=== PATIENT | female | born 1995 | race Caucasian/White ===

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

== ENCOUNTER 2017-01-20 23:20 | Inpatient (IN) ==
[2017-01-20] MEDS ORDERED: NORMAL SALINE 10 ML SYRINGE FLUSH IVP PRN (23:45)
[2017-01-21] MEDS ORDERED: MORPHINE SULFATE 10 MG/1 ML IM ONE (06:58)
[2017-01-21] MEDS ORDERED: NORMAL SALINE 10 ML SYRINGE FLUSH IVP PRN (09:15)
[2017-01-21] MEDS ORDERED: METHYLERGONOVINE MALEATE 0.2 MG/1 ML VIAL IM PRN (09:15)
[2017-01-21] MEDS ORDERED: Famotidine Inj 20 MG in Normal Saline Flush 10 ML IVP PRN ×4 (09:15)
[2017-01-21] MEDS ORDERED: fentaNYL Inj 100 MCG/2 ML VIAL IV PRN (09:15)
[2017-01-21] MEDS ORDERED: Nalbuphine Inj 20 MG/ML Ampule IVP PRN (09:15)
[2017-01-21] MEDS ORDERED: Naloxone Inj 0.01 MG in Normal Saline Flush 1 ML IVP PRN (09:15)
[2017-01-21] MEDS ORDERED: OXYTOCIN 10 UNIT/1 ML IM PRN (09:15)
[2017-01-21] MEDS ORDERED: LIDOCAINE HCL 2 % 10 ML JELLY URO-JECT TOPICAL PRN (09:15)
[2017-01-21] MEDS ORDERED: CITRIC ACID/SODIUM CITRATE 30 ML CUP PO PRN (09:15)
[2017-01-21] MEDS ORDERED: Lactated Ringers-OB Dept 1,000 ML PRIMARY IV SCH (09:15)
[2017-01-21] MEDS ORDERED: Lidocaine 1% 10 MG/ML - 20 ML VIAL SUBCUT PRN (09:15)
[2017-01-21] MEDS ORDERED: diphenhydrAMINE 50 MG/1 ML VIAL IVP PRN (09:15)
[2017-01-21] MEDS ORDERED: Phenylephrine Inj 50 MCG in Normal Saline Flush 0.5 ML IVP PRN (09:15)
[2017-01-21] MEDS ORDERED: CALCIUM CARBONATE 500 MG (TUMS) CHEWABLE TABLET PO PRN (09:15)
[2017-01-21] MEDS ORDERED: TERBUTALINE SULFATE 1 MG/1 ML SDV SUBCUT PRN (09:15)
[2017-01-21] MEDS ORDERED: Metoclopramide Inj 10 MG/2 ML VIAL IV PRN (09:15)
[2017-01-21] MEDS ORDERED: NALOXONE 0.4 MG/1 ML VIAL IVP PRN (09:15)
[2017-01-21] MEDS ORDERED: CefOXitin Inj 2 GM in Sodium Chloride 0.9% 100 ML IV PRN (09:15)
[2017-01-21] MEDS ORDERED: Oxytocin 20 Units + LR 20 UNIT/1,000 ML BAG IV SCH (09:15)
[2017-01-21] MEDS ORDERED: MISOPROSTOL 200 MCG TABLET RECTAL PRN (09:15)
[2017-01-21] MEDS ORDERED: Carboprost Inj 250 MCG/ML AMP IM PRN (09:15)
[2017-01-21] MEDS ORDERED: ePHEDrine Inj 5 MG in Normal Saline Flush 1 ML IVP PRN (09:15)
[2017-01-21] MEDS ORDERED: LIDOCAINE W/ SODIUM BICARB 0.5 ML SYR SUBD PRN (09:15)
[2017-01-21] MEDS ORDERED: BUTORPHANOL TARTRATE 2 MG/1 ML VIAL IVP PRN (09:15)
[2017-01-21] MEDS ORDERED: ONDANSETRON 4 MG/2 ML VIAL IVP PRN (09:15)
[2017-01-21 12:54] VITALS: O2SAT 100
[2017-01-21 14:31] VITALS: BP 131/67; RESP 17; TEMP 98.4
--- NOTE | 2017-01-24 13:54 | OB.PROGRES ---
Date and Time of Service: 01/21/17 @ 1500 Interval History: Pt came to labor and delivery last noc with painful uterine contractions. She was observed overnoc. This morning, she was seen by myself as Dr. Polanco was out of town. She was having painful contractions about every 2-3 minutes. Her cervix was 2-3/80/-2. She did ambulate and get in the whirlpool. Later, she was given some IVF and a dose of fentanyl, which greatly improved her pain. She was discharged home with labor precautions. Objective - Cervical Exam Cervical Exam: 2-3/80/-2 at last check per myself at 0900. Her cervix was unchanged with the nurse's check prior to discharge. Crocker: irregular, mild contractions. Heart Rate: category 1, moderate variability. Heart Rate Interpretation Category: Category I - Vital Signs Last Taken Vital Signs: Vital Signs - Last Taken Temperature 98.4 F 01/21/17 14:29 Pulse Rate 99 01/21/17 14:29 Respiratory Rate 17 01/21/17 14:29 Blood Pressure 131/67 01/21/17 14:29 Pulse Ox 100 01/21/17 14:29 Assessment and Plan - Patient Problems (1) Prolonged latent phase of labor Status: Acute Code(s): O62.0 - Primary inadequate contractions - Assessment / Plan Additional Assessment/Plan Details: -d/c home with strict labor precautions. -regular diet -f/u as scheduled with Dr. Polanco this week. -return sooner with increased pain with contractions, any vag bleeding, gushes of fluid or other concerns.
== END 2017-01-21 15:30 | disposition home or self-care (01) | DRG 782 ==
LOC: OBOP 23:20 → OBIP 01-21 09:16
PROVIDERS: ADMIT Family Medicine; ATTEND Family Medicine

== ENCOUNTER 2017-01-22 06:30 | Inpatient (IN) ==
[2017-01-22] MEDS ORDERED: NORMAL SALINE 10 ML SYRINGE FLUSH IVP PRN ×2 (06:42→23:38)
[2017-01-22] MEDS ORDERED: Phenylephrine Inj 50 MCG in Normal Saline Flush 0.5 ML IVP PRN ×2 (06:42→14:03)
[2017-01-22] MEDS ORDERED: CALCIUM CARBONATE 500 MG (TUMS) CHEWABLE TABLET PO PRN ×2 (06:42→23:38)
[2017-01-22] MEDS ORDERED: ONDANSETRON 4 MG/2 ML VIAL IVP PRN ×2 (06:42→23:38)
[2017-01-22] MEDS ORDERED: LIDOCAINE HCL 2 % 10 ML JELLY URO-JECT TOPICAL PRN ×2 (06:42→23:38)
[2017-01-22] MEDS ORDERED: CITRIC ACID/SODIUM CITRATE 30 ML CUP PO PRN (06:42)
[2017-01-22] MEDS ORDERED: Lidocaine 1% 10 MG/ML - 20 ML VIAL SUBCUT PRN (06:42)
[2017-01-22] MEDS ORDERED: TERBUTALINE SULFATE 1 MG/1 ML SDV SUBCUT PRN (06:42)
[2017-01-22] MEDS ORDERED: ePHEDrine Inj 5 MG in Normal Saline Flush 1 ML IVP PRN ×2 (06:42→14:03)
[2017-01-22] MEDS ORDERED: MISOPROSTOL 200 MCG TABLET RECTAL PRN (06:42)
[2017-01-22] MEDS ORDERED: diphenhydrAMINE 50 MG/1 ML VIAL IVP PRN ×3 (06:42→23:38)
[2017-01-22] MEDS ORDERED: BUTORPHANOL TARTRATE 2 MG/1 ML VIAL IVP PRN ×2 (06:42→14:03)
[2017-01-22] MEDS ORDERED: METHYLERGONOVINE MALEATE 0.2 MG/1 ML VIAL IM PRN (06:42)
[2017-01-22] MEDS ORDERED: Famotidine Inj 20 MG in Normal Saline Flush 10 ML IVP PRN ×4 (06:42)
[2017-01-22] MEDS ORDERED: Carboprost Inj 250 MCG/ML AMP IM PRN (06:42)
[2017-01-22] MEDS ORDERED: Metoclopramide Inj 10 MG/2 ML VIAL IV PRN (06:42)
[2017-01-22] MEDS ORDERED: LIDOCAINE W/ SODIUM BICARB 0.5 ML SYR SUBD PRN (06:42)
[2017-01-22] MEDS ORDERED: Naloxone Inj 0.01 MG in Normal Saline Flush 1 ML IVP PRN ×2 (06:42→14:03)
[2017-01-22] MEDS ORDERED: OXYTOCIN 10 UNIT/1 ML IM PRN (06:42)
[2017-01-22] MEDS ORDERED: CefOXitin Inj 2 GM in Sodium Chloride 0.9% 100 ML IV PRN (06:42)
[2017-01-22] MEDS ORDERED: Nalbuphine Inj 20 MG/ML Ampule IVP PRN ×3 (06:42→23:38)
[2017-01-22] MEDS ORDERED: NALOXONE 0.4 MG/1 ML VIAL IVP PRN ×2 (06:42→14:03)
[2017-01-22] MEDS ORDERED: Oxytocin 20 Units + LR 20 UNIT/1,000 ML BAG IV SCH ×2 (06:45→23:38)
[2017-01-22] MEDS: fentaNYL Inj 100 MCG/2 ML VIAL IV PRN ×6 (07:34→13:39)
[2017-01-22 07:35] LABS: Hematocrit [HCT] 37.9 % (37.0-47.0); Hemoglobin [HGB] 12.8 g/dL (12.0-16.0); MEAN CORPUSCULAR HEMOGLOBIN 27.4 PG (27-31); MEAN CORPUSCULAR HGB CONC 33.8 g/dL (33-37); MEAN CORPUSCULAR VOLUME 81.2 FL (81-99); MEAN PLATELET VOLUME 11.5 FL (7.4-12.2); RED BLOOD COUNT 4.67 10^6/uL (4.20-5.40)
[2017-01-22] MEDS: Lactated Ringers-OB Dept 1,000 ML PRIMARY IV SCH ×4 (07:36→18:47)
[2017-01-22 08:27] LABS: BLOOD UREA NITROGEN 13 mg/dL (7-22); BUN/CREATININE RATIO 18.57 (6-20); SERUM ALBUMIN 3.1 g/dL (3.7-5.6); Uric Acid 4.6 mg/dl (2.5-6.2)
[2017-01-22] MEDS ORDERED: Fent/Bupiv 2mcg/0.0625% Epid 250 ML ONE (13:55)
--- NOTE | 2017-01-22 14:05 | CRNA.PROCE ---
Central Neuraxis Block Placemt - - Safety Measures: Time Out Taken, Site Verified - - Type of Block: Epidural Reason for Block: Analgesia Moniters Used During Block: SPO2, NIBP Sedation Used - Enter Amount Used in Comment Field: Fentanyl (mcg): Yes (100mcg) Introducer User: 18 Gauge Layo Local Anesthetic - Enter Amount Used in Comment Field: 5.0 % Xylocaine with Dextrose (ml): Yes (Test dose neg 5ml @1352) Number of Centimeters Catheter Threaded: 4 Bioclusive Dressing Applied: Yes Anesthesia Time - Other Weight: 74.616 kg Height: 5 ft 6 in Body Mass Index (BMI): 26.5
--- NOTE | 2017-01-22 14:06 | CRNA.PROGR ---
<LESLIE GOMES - Last Filed: 01/22/17 14:06> Anesthesia Time - - Start date: 01/22/17 - Procedure/Recovery Time Anesthesia : Time In: 13:40 - Other Weight: 74.616 kg Height: 5 ft 6 in Body Mass Index (BMI): 26.5 Physical Status: P2 Anesthesia Type: Epidural Obstetrics: Planned vaginal delivery w/ neuraxial labor anesthesia/analog <CASSIE CAMPOS - Last Filed: 01/23/17 07:49> Anesthesia Time - Procedure/Recovery Time Anesthesia : Time Out: 20:30
[2017-01-22] MEDS ORDERED: BUPivacaine Inj 0.25% PF - 10ml vial ONE (16:40)
[2017-01-22] MEDS ORDERED: Sodium Chloride 0.9% vial 10 ML ONE (16:40)
[2017-01-22] MEDS ORDERED: BUPIVACAINE SPINAL 7.5 MG/1 ML - 2 ML IV ONE (17:32)
[2017-01-22] MEDS ORDERED: MORPHINE SULFATE/PF 10 MG/10 ML AMPULE ONE (17:32)
--- NOTE | 2017-01-22 17:37 | OB.PROGRES ---
Interval History: 21 yo at 39 1/7 weeks gestation by LMP, 1st tri u/s presented this morning in active labor. She was admitted yesterday with regular contractions but ended up going home as she was still in early labor. This morning she was chanda regularly and had made progress to 4 cm. AROM was accomplished at around 1300 with clear fluid. She got an epidural after but has had a persistent window in her R pelvis. Anesthesia is here to redo the epidural. Objective - Cervical Exam Cervical Exam: 7-8/100/0 per RN, with increasing caput [place]: q2-4 Heart Rate: baseline 140, moderate variability, +accels, -decels Heart Rate Interpretation Category: Category I - Labs CBC and BMP: 01/22/17 07:32 01/22/17 08:10 - Vital Signs Last Taken Vital Signs: Vital Signs - Last Taken Temperature 98.2 F 01/22/17 17:00 Pulse Rate 75 01/22/17 17:00 Respiratory Rate 20 01/22/17 17:00 Blood Pressure 131/71 01/22/17 17:00 Pulse Ox 73 01/22/17 17:00 Assessment and Plan - Patient Problems (1) Active labor at term Current Visit: Yes Status: Acute Support Text: 21 yo at 39 1/7 -Epidural is being replaced -Patient is continuing to make progress with dilation and descent, although caput noted on this check -Will continue close observation -GBS negative -Anterior placenta -Blood type O+, RI
--- NOTE | 2017-01-22 18:24 | CRNA.PROCE ---
Central Neuraxis Block Placemt - - Type of Block: Epidural Reason for Block: Analgesia Moniters Used During Block: SPO2, NIBP Skin Prep Used: ChloroPrep Spinal Needle Used: 18 Hustead 80 mm Local Anesthetic - Enter Amount Used in Comment Field: 1.5 % Xylocaine with Epinephrine 1:200,000 (mL): Yes (5ml) Number of Centimeters Catheter Threaded: 4 Bioclusive Dressing Applied: Yes - - Additional Details: Patient is late in labor 7-8 cm as reported by nursing staff. Complaining increased labor pain, does not seenm to be getting relief from most recent bolus. Assessed epidural cath and it appears to have fluid tracking back and possible the catheter has pulled out. Decided to dc original epidural cath and replace. Also decided to do CSE. Touhy needle place three times with crisp CARLOS but unable to get CSF back with each attempt. decided to abandon the spinal and just do epidural cath. Anesthesia Time - Other Weight: 74.616 kg Height: 5 ft 6 in Body Mass Index (BMI): 26.5
[2017-01-22] MEDS ORDERED: fentaNYL 2 MCG/BUPIVACAINE 0.0625%/NS 0.9% 250 ML BAG EPIDURAL SCH (18:30)
--- NOTE | 2017-01-22 21:54 | OB.DEL.SUM ---
Delivery Note Delivery Summary: 21 yo G1 now P1 presented in active labor after a prolonged latent phase. Around 1300 AROM was accomplished with clear fluid. She then progressed to complete about 191. She started pushing at 1927. After her initial push she had a decel down to 85 that took about 90 seconds to return to baseline. She rest for the next couple of contractions, O2 placed. Then the again decelerated to 90 with a quicker return to baseline. Again we used O2 and offered rest. She started pushing more consistently around 1953, still with decels but not nearly as low or as prolonged. At 2009 his head delivered spontaneously it was DAWSON at presentation. If seemed initially that the anterior shoulder was the R shoulder. Normal traction was utilized initially and a shoulder dystocia was noted and announced to the team. No fundal pressure was applied. Maneuvers included Pacheco, suprapubic pressure, Flores maneuver. LANI Cain was in the callejas and was called in. He gloved and assisted with rotational maneuvers. The ended up delivering with L shoulder anterior with a compound hand. delivered at 2011. No nuchal cord was noted. The cord was doubly clamped and cut and taken directly to the warmer. Cord gases were collected. I did forget to get cord blood. The placenta delivered spontaneously and intact at 2019. Her vagina was inspected and noted to have only a first degree perineal laceration which was repaired in standard fashion. She had 2 periurethral skid engle that hemostatic and did not require repair. EBL 250 cc. Apgars were 2,6,7 at 1, 5, and 10 minutes respectively. He was noted to have little movement of his left arm initially but within 30 minutes showed spontaneous movement. Clavicles appear to be intact. Staff present: myself, Janet Cain, RN, Marlin High, RN, Helga Dixon, RT Family present: SO, patient's sister Patient was counseled on the difficult nature of the delivery. Cord gas results: pH 7.216, PCO2 45.6, HCO3 18.5, BE -9 Sponge and needle counts were correct. - Patient Problems (1) Active labor at term Current Visit: Yes Status: Acute (2) Shoulder dystocia during labor and delivery Current Visit: Yes Status: Acute Code(s): O66.0 - Obstructed labor due to shoulder dystocia
[2017-01-22] MEDS ORDERED: LANOLIN HPA 40 GM TUBE TOPICAL PRN (23:38)
[2017-01-22] MEDS ORDERED: GLYCERIN/WITCH HAZEL 1 BOX TOPICAL PRN (23:38)
[2017-01-22] MEDS ORDERED: diphenhydrAMINE 25 MG CAPSULE PO PRN (23:38)
[2017-01-22] MEDS ORDERED: Ondansetron ODT Tab 4 MG TAB PO PRN (23:38)
[2017-01-22] MEDS ORDERED: HYDROcodone-APAP 5 MG -325 MG TABLET PO PRN (23:38)
[2017-01-22] MEDS ORDERED: ACETAMINOPHEN 325 MG TABLET PO PRN (23:38)
[2017-01-22] MEDS ORDERED: BENZOCAINE/MENTHOL SPRAY 56 GM BOTTLE TOPICAL PRN (23:38)
[2017-01-23] MEDS: IBUPROFEN 800 MG TABLET PO PRN ×2 (01:00→08:35)
[2017-01-23 05:04] LABS: Hematocrit [HCT] 33.3 % (37.0-47.0); Hemoglobin [HGB] 11.1 g/dL (12.0-16.0); MEAN CORPUSCULAR HEMOGLOBIN 27.5 PG (27-31); MEAN CORPUSCULAR HGB CONC 33.3 g/dL (33-37); MEAN CORPUSCULAR VOLUME 82.4 FL (81-99); MEAN PLATELET VOLUME 11.7 FL (7.4-12.2); RED BLOOD COUNT 4.04 10^6/uL (4.20-5.40)
--- NOTE | 2017-01-23 07:57 | CRNA.PROGR ---
Anesthesia Note - Progress Notes Anesthesia Progress Note: Post delivery yesterday at 2011. Now skin to skin with . Cheerful. Denies nausea. Denies headache. Denies backache. Pleased with care. Baby was on CPAP right after delivery for an hour, now doing well.. Rosa Armstrong MS, OPTICAL ENGINEER
[2017-01-23] MEDS: DOCUSATE 100 MG CAPSULE PO SCH ×2 (08:34→21:31)
[2017-01-23] MEDS: Prenatal Multivitamin Tab 1 TAB TAB PO SCH (08:36)
[2017-01-23 13:31] VITALS: RESP 18
[2017-01-23 17:22] LABS: BASOPHILS # (AUTO) 0.06 10*3/UL; BASOPHILS % (AUTO) 0.3 % (0-1); EOSINOPHILS # (AUTO) 0.17 10*3/UL; EOSINOPHILS % (AUTO) 0.7 % (0-8); Hematocrit [HCT] 32.3 % (37.0-47.0); Hemoglobin [HGB] 10.6 g/dL (12.0-16.0); LYMPHOCYTES # (AUTO) 3.07 10*3/uL; MEAN CORPUSCULAR HEMOGLOBIN 27.3 PG (27-31); MEAN CORPUSCULAR HGB CONC 32.8 g/dL (33-37); MEAN CORPUSCULAR VOLUME 83.2 FL (81-99); MEAN PLATELET VOLUME 11.6 FL (7.4-12.2); MONOCYTES # (AUTO) 1.44 10*3/UL (0.3-0.8); MONOCYTES % (AUTO) 6.1 % (5-15); NEUTROPHILS # (AUTO) 18.87 10*3/UL; NEUTROPHILS % (AUTO) 79.6 % (50-80); RED BLOOD COUNT 3.88 10^6/uL (4.20-5.40)
[2017-01-23 17:25] LABS: PLATELET MORPHOLOGY COMMENT NORMAL MORPHOLOGY (NORM); RBC MORPHOLOGY COMMENT NORMAL MORPHOLOGY (NORM); WBC MORPHOLOGY COMMENT NORMAL MORPHOLOGY (NORM)
[2017-01-24 08:16] LABS: BASOPHILS # (AUTO) 0.06 10*3/UL; BASOPHILS % (AUTO) 0.3 % (0-1); EOSINOPHILS # (AUTO) 0.32 10*3/UL; EOSINOPHILS % (AUTO) 1.8 % (0-8); Hematocrit [HCT] 33.9 % (37.0-47.0); Hemoglobin [HGB] 10.9 g/dL (12.0-16.0); LYMPHOCYTES # (AUTO) 2.99 10*3/uL; MEAN CORPUSCULAR HGB CONC 32.2 g/dL (33-37); MEAN CORPUSCULAR VOLUME 84.1 FL (81-99); MEAN PLATELET VOLUME 11.6 FL (7.4-12.2); MONOCYTES # (AUTO) 0.92 10*3/UL (0.3-0.8); MONOCYTES % (AUTO) 5.3 % (5-15); NEUTROPHILS # (AUTO) 13.13 10*3/UL; RED BLOOD COUNT 4.03 10^6/uL (4.20-5.40)
[2017-01-24 08:21] LABS: PLATELET MORPHOLOGY COMMENT NORMAL MORPHOLOGY (NORM); RBC MORPHOLOGY COMMENT NORMAL MORPHOLOGY (NORM); WBC MORPHOLOGY COMMENT NORMAL MORPHOLOGY (NORM)
[2017-01-24] MEDS: Prenatal Multivitamin Tab 1 TAB TAB PO SCH (09:12)
[2017-01-24] MEDS: DOCUSATE 100 MG CAPSULE PO SCH (09:12)
[2017-01-24] MEDS: IBUPROFEN 800 MG TABLET PO PRN ×2 (09:14→16:53)
[2017-01-24 09:30] VITALS: TEMP 98.3
[2017-01-24 16:56] VITALS: BP 121/77; O2SAT 97
--- NOTE | 2017-01-26 19:17 | DCSUMMARY ---
Hospitalization Summary Admit Date: 01/22/17 Discharge Date: 01/24/17 Primary Diagnosis:: s/p VD complicated by shoulder dystocia Delivery Type: Vaginal Hospital Course: 21 yo G1 now P1 admitted in active labor. She had been admitted the day prior but was in early labor and ultimately discharged home. Labor was augmented with AROM and she progressed to complete. Delivery was complicated initially by deep prolonged decels but baby tolerated pushing better with time. Delivery was then further complicated by a 2 minute shoulder dystocia requiring mc osman, suprapubic pressure and internal rotation maneuvers. She only sustained a 1st degree perineal laceration / Postop Complications: Patient did well . Her white count was elevated on PPD 1 to 31.84 10^3/ul. She was afebrile through labor and , no fundal tenderness above what was expected, no tachycardia, foul smelling lochia or any other concerning symptoms. WBC was down to 17.5 K on the morning of discharge without any intervention. 01/22/17 01/23/17 01/23/17 07:32 04:57 17:00 WBC 14.59 H 31.84 H* 23.71 H 01/24/17 08:00 WBC 17.51 H Complications: R clavicle fracture Exam - Vitals Vital Signs: Vital Signs Temperature 98.3 F Temperature Source Oral Pulse Rate [Pulse Oximeter] 72 Pulse Rate 88 Respiratory Rate [Bilateral 18 Abdomen] Respiratory Rate 18 Blood Pressure [Left Arm] 111/60 Blood Pressure [Right Arm] 121/77 Blood Pressure 128/69 Pulse Ox 97 Oxygen Flow Rate [Bilateral 10 Abdomen] Oxygen Flow Rate 10 Oxygen Flow Rate [1 of 1] 10 Oxygen Delivery Method Room Air Height 5 ft 6 in Weight 164 lb 8 oz - General General Appearance: No Acute Distress, Cooperative - Respiratory Respiratory Exam: POSITIVE: Clear to Auscultation - Bilaterally - Cardiovascular Cardiovascular Exam: POSITIVE: RRR - GI/Abdominal GI/Abdominal Exam: POSITIVE: Normal Bowel Sounds, Non Tender Additional GI/Abdominal Exam Details: Uterus firm 1 cm below umbilicus, no significant fundal tenderness - Extremities Extremities Exam: POSITIVE: No Edema Present - Neurological Neurological Exam: POSITIVE: Alert, Oriented x 3 - Psychiatric Psychiatric Exam: POSITIVE: Normal Affect, Normal Mood Patient Problems - Patient Problem List (1) Active labor at term Status: Acute Category: Medical (2) Shoulder dystocia during labor and delivery Status: Acute Code(s): O66.0 - Obstructed labor due to shoulder dystocia Support Text: PPD 2. Leukocytosis improved without intervention, no other evidence of infection Breast feeding well Pain controlled with ibuprofen PPContraception plan: mirena at 4-6 weeks pp D/c to home today, Rxs for ibuprofen and colace sent to pharmacy. Continue PNV. Category: Medical
--- NOTE | 2017-01-26 19:27 | OB.PROGRES ---
Subjective Post Op Day: 1 Pain Management: PO [place] Catheter: No Diet: Regular [place] Feeding Method: Exculsively Ambulating: Yes Concerns / Additional Information: Denies fever, lightheadedness, pain, any concerns. Objective General: well appearing, AOx3, CardioVascular: RRR Respiratory: CTAB Bowel Sounds: Present Extremities: Negative Esperanza's - Bilaterally Assesstment / Plan (1) Active labor at term Status: Acute (2) Shoulder dystocia during labor and delivery Status: Acute (3) Leukocytosis Status: Acute Support Text: No signs of infection, continue to monitor closely, recheck in AM Breast feeding - continue to support Anticipate d/c home tomorrow
== END 2017-01-24 19:30 | disposition home or self-care (01) | DRG 775 ==
LOC: OBIP 06:42 → EDSTATUS 06:53
PROVIDERS: ADMIT Student in an Organized Health Care Education/Training Program; ATTEND Student in an Organized Health Care Education/Training Program